=== PATIENT | male | born 1995 | race Caucasian/White ===

== ENCOUNTER 2020-02-01 13:27 | Outpatient (REF) | payer MEDICAID, SELFPAY | END 2020-02-01 13:28 | disposition home or self-care (01) | LOC: HO.LAB 13:27 | PROVIDERS: Visit Provider Internal Medicine | DX: Z20.828 Contact with and (suspected) exposure to other viral communicable diseases (principal) | CPT/HCPCS: C9803; U0003 ==

== ENCOUNTER 2020-02-15 13:12 | Outpatient (REF) | payer MEDICAID, SELFPAY | END 2020-02-15 13:13 | disposition home or self-care (01) | LOC: HO.LAB 13:12 | PROVIDERS: Visit Provider Internal Medicine | DX: Z20.828 Contact with and (suspected) exposure to other viral communicable diseases (principal) | CPT/HCPCS: C9803; U0003 ==

== ENCOUNTER 2020-03-23 13:38 | Outpatient (REF) | payer MEDICAID, SELFPAY | END 2020-03-23 13:39 | disposition home or self-care (01) | LOC: HO.LAB 13:38 | PROVIDERS: Visit Provider Internal Medicine | DX: Z20.822 Contact with and (suspected) exposure to COVID-19 (principal) | CPT/HCPCS: 36415; C9803; U0003 ==

== ENCOUNTER 2020-05-22 14:44 | Emergency (ER) | payer MEDICAID, SELFPAY ==
[2020-05-22 14:53] VITALS: BP 133/74; PULSE 78; RESP 16; TEMP 36.6; O2SAT 98; BMI 21.9
[2020-05-22 16:11] LABS: Glucose Urine UA NEG (NEG); Leukocyte Esterase Urine NEG (NEG); Nitrite Urine NEG (NEG); Specific Gravity - Urine >= 1.030 (1.005-1.025); Urine Blood NEG (NEG); Urine Ketones NEG (NEG); Urine Protein NEG (NEG-TRACE)
[2020-05-22 16:17] LABS: Color Urine YELLOW
[2020-05-22 16:18] LABS: Appearance Urine CLEAR
[2020-05-22 16:26] LABS: UACC CULT YES
[2020-05-22 16:27] LABS: Bacteria Urine TRACE /LPF; Mucus Urine 3+ /LPF; Squamous Epithelial Cell Urine TRACE /LPF; Uric Acid Crystals Urine TRACE /LPF
--- NOTE | 2020-05-22 16:50 | ED_ITS ---
HPI - Male Genitourinary General Chief complaint: Urogenital-Male Stated complaint: pain when urinating Time Seen by Provider: 05/22/20 16:08 Source: patient Mode of arrival: ambulatory Limitations: no limitations History of Present Illness HPI Narrative: 25-year-old male presenting to the ED with complaints of burning with urination for the past 2 days worse today sharp in nature. Also reports bilateral inguinal lymphadenopathy. Reports he has had this in the past was diagnosed with UTI and balanitis. Reports he has not had any sexual intercourse in over a year but has been sexually active in the past. Denies any thoughts for STDs at this time. Denies any other symptoms complaints or concerns at this time. MD Complaint: dysuria Onset (ago): day(s) (Two days worse today) Duration: constant and progressively worsening Location: penis, right inguinal region and left inguinal region Severity: moderate Quality: aching and sharp Relieving factors: none Exacerbating factors: urination and palpation Associated symptoms: Reports denies other symptoms Related Data Previous Rx's Medication Instructions Recorded doxycycline monohydrate 100 mg PO BID 10 Days #20 cap 05/22/20 valacyclovir [Valtrex] 1,000 mg PO BID 10 Days #20 tab 05/22/20 Allergies Allergy/AdvReac Type Severity Reaction Status Date / Time No Known Allergies Allergy Unverified 11/12/19 16:28 Review of Systems Review of Systems: Constitutional : No Fever, No Chills ENT/Mouth : No sore throat, No Rhinorrhea Eyes: No Eye Pain, No Redness Cardiovascular : No Chest Pain, No SOB Respiratory : No Cough, No Sputum, No Wheezing Gastrointestinal : No Nausea, No Vomiting, No Diarrhea, positive abdominal pain, Genitourinary : + Dysuria, No hematuria, No Urinary Frequency, No pelvic pain, No abnormal penile discharge Musculoskeletal : No Myalgias Skin : No rash Neuro : No Weakness, No Headache Psych : No Anxiety/Panic, No Depression Heme/Lymph: + Lymphadenopathy Endocrine : No Polyuria, No Polydipsia Yes all other systems are reviewed and are negative [facility] Past Medical History Attestation statement: The following information was validated with the patient. Social History Social History Smoked in Last 30 Days: No Use of substances other than those prescribed or required for medical reasons: No Advance Directives: No Advance Directives Information Provided: No Physical Exam Vital Signs: Vital Signs: Last Vital Signs Temp 97.9 F 05/22/20 14:53 Pulse 78 05/22/20 14:53 Resp 16 05/22/20 14:53 BP 133/74 05/22/20 14:53 Pulse Ox 98 05/22/20 14:53 Body Mass Index 21.9 vital signs have been reviewed as normal and appeared to be correct. Blood pressure normal. Heart rate normal. Respiration rate normal. Temperature normal. Oxygen saturation normal. Appearance: Alert. Oriented X3. No acute distress. Head: Normal external exam. Normocephalic. Atraumatic. Eyes: PERRLA. EOMI. Conjunctiva and sclera normal. Eyelids normal. ENT: Pharynx normal. Uvula midline. Moist mucous membranes. Neck: Normal inspection. Neck supple. FROM. No adenopathy. Thyroid Normal. No meningeal signs. No neck mass noted. CVS: Normal heart rate and rhythm. Heart sound normal. No murmurs noted. Pulses normal throughout. Respiratory: No respiratory distress. Painless inspiration. Breath sounds normal. No wheezes/rales/rhonchi noted. Chest nontender. No accessory muscle usage noted or decreased air movement noted. Abdomen: Soft and nontender. Bowel sounds normal in all 4 quadrants. No distention noted. No organomegaly noted. No visible injury noted. : Chaperoned by SHELTON Valadez, Normal external exam. No ecchymosis/edema/erythema. No hernia noted. + b/l inguinal lymphadenopathy noted. To the head of the penis when the patient pulls back the foreskin he is noted to have it is shallow, painful vesicles clustered on erythematous base consistent with herpes simplex. No abnormal penile discharge noted. No lacerations/induration noted. No Condyloma noted. No ecchymosis/erythema/swelling/edematous/mass/nodule/papules/pustules. Not consistent with paraphimosis or phimosis. The meatus is normal. No meatal discharge noted. No blood at the meatus. The scrotum is normal. Cremasteric reflex absent. No ecchymosis/edematous/erythema noted. Testicles are both descended bilaterally. No hydrocele noted. No scrotal mass/swelling noted. No varicocele. Testicles appear normal. They lie normal. Epididymides normal. No blue dot sign. Testicles are not enlarged. No epididymal induration/mass/tenderness. No testicular mass noted. No testicular swelling/tenderness. No high-riding testicle noted. No testicular atrophy noted. Back: No CVA tenderness. Full range of motion noted. Skin: Skin warm and dry. Normal skin color. Normal skin turgor. No rashes/lesions/lacerations noted. Extremities: Extremities exhibit normal range of motion. Extremities nontender. Neuro: Oriented X 3. No motor deficit. No sensory deficit. Reflexes normal. Course Course Course Narrative: 25-year-old male presenting to the ED with complaints of burning with urination for the past 2 days worse today sharp in nature. Also reports bilateral inguinal lymphadenopathy. - on exam patient is noted to have shallow, painful vesicles clustered on an erythematous base consistent with possible herpes simplex virus. Otherwise no penile discharge. Not consistent with paraphimosis or phimosis. Not consistent with balanitis. - therefore I discussed the possible chance of having herpes simplex virus and other STDs with the patient. I offered treatment for gonorrhea/chlamydia/herpes and syphilis and patient is requesting treatment for all of the above. Therefore at this time will give 500 g of ceftriaxone for gonorrhea, 2400 mg of penicillin for syphilis, will DC the patient home with doxycycline 100 mg b.i.d. times 10 days for chlamydia and will also discharge the patient with Valtrex for herpes. Along with instructions to return if any new or worsening symptoms and to follow up with primary care provider. Patient understands agrees the plan. MDM - Male Genitourinary Medical Records Attestation: I reviewed the patient's medical records. Lab Data Attestation: I reviewed the patient's lab results. Labs: Lab Results 05/22/20 Range/Units 16:02 Urine Color YELLOW Urine Appearance CLEAR Urine pH 6.0 (5.0-8.0) Ur Specific [place] >= 1.030 H (1.005-1.025) Urine Protein NEG (NEG-TRACE) MG/DL Urine Glucose (UA) NEG (NEG) MG/DL Urine Ketones NEG (NEG) MG/DL Urine Blood NEG (NEG) Urine Nitrite NEG (NEG) Ur Leukocyte Esterase NEG (NEG) Urine RBC 1-4 (0) /HPF Urine WBC 10-14 H (0-4) /HPF Ur Squamous Epith Cells TRACE /LPF Uric Acid Crystals TRACE /LPF Urine Bacteria TRACE /LPF Urine Mucus 3+ /LPF Discharge Plan Discharge Clinical Impression: Urinary tract infection, Genital herpes simplex, Possible exposure to STD Patient Disposition: Home, Self-Care Instructions: Genital Herpes Simplex (ED), Sexually Transmitted Diseases (ED), Male Condom Use (ED), Safe Sex Practices (ED), Urinary Tract Infection in Men (ED) Additional Instructions: You have pending lab results if any are positive you will be contacted. You should sustain abstinent from any sexual intercourse for at least 10-14 days until you no longer have symptoms. Any sexual partner should also be tested and treated if not you can reinfect yourself. Return if any new or worsening symptoms and follow up with her primary care provider. Prescriptions: New doxycycline monohydrate 100 mg capsule 100 mg PO BID 10 Days Qty: 20 RF: 0 valacyclovir [Valtrex] 1 gram tablet 1,000 mg PO BID 10 Days Qty: 20 RF: 2 Referrals: Physician,None [Primary Care Provider] - 1 day (Your PCP) Stand Alone Forms: Work/School Release Print Language: [place]anian
[2020-05-22] MEDS: cefTRIAXone sodium 500 MG, Lidocaine HCl 1 % MPF 1 ML IM (17:27)
[2020-05-22] MEDS: Penicillin G Benzathine 2,400,000 UNIT/4 ML SYRINGE 2400000 UNIT IM (17:27)
[2020-05-23 08:10] LABS: Syphilis Screen Nonreactive (Nonreactive)
[2020-05-23 09:23] LABS: CT PCR NOT DETECTED (Not Detect.); NG PCR NOT DETECTED (Not Detect.)
== END 2020-05-22 18:01 | disposition home or self-care (01) ==
PROVIDERS: Physician Assistant Medical; Emergency Provider Emergency Medicine Emergency Medical Services
DX: A60.00 Herpesviral infection of urogenital system, unspecified (principal); N39.0 Urinary tract infection, site not specified; R59.1 Generalized enlarged lymph nodes; Z11.3 Encounter for screening for infections with a predominantly sexual mode of transmission
CPT/HCPCS: 36415; 81001; 86780; 87086; 87255; 87491; 87591; 96365; 96372; 99283; 99284; J0561; J0696

== ENCOUNTER 2020-09-20 12:44 | Outpatient (REF) | payer MEDICAID, SELFPAY | END 2020-09-20 12:45 | disposition home or self-care (01) | LOC: HO.LAB 12:44 | PROVIDERS: Visit Provider Internal Medicine | DX: Z20.822 Contact with and (suspected) exposure to COVID-19 (principal) | CPT/HCPCS: C9803; U0003; U0005 ==

== ENCOUNTER 2021-02-27 11:00 | Outpatient (REF) | payer MEDICAID, SELFPAY ==
[2021-02-27 11:46] LABS: Binax Now Covid-19 Ag Negative (Negative)
[2021-02-27 11:47] LABS: Binax Internal Control QC Valid; Binax Lot number: 9864
== END 2021-02-27 11:01 | disposition home or self-care (01) ==
LOC: HO.LAB 11:00
PROVIDERS: Visit Provider Internal Medicine
DX: Z20.822 Contact with and (suspected) exposure to COVID-19 (principal)
CPT/HCPCS: 36415; C9803